=== PATIENT | male | born 1970 | race Two or more races ===

== ENCOUNTER 2024-07-14 15:27 | Inpatient (IN) | payer MEDICAID, OTHER ==
[~2024-07-14] VITALS: Ht 182.9 cm; Wt 102.5 kg
[~2024-07-14 15:27] MED LIST: ERGO500086 PO; GLIP10TA9 PO; IBUP-1456 PO; LIDO1PAD55 EX; LOSA-535 PO
[2024-07-14 16:02] VITALS: PULSE 110; O2SAT 96
[2024-07-14] MEDS: SODIUM CHLORIDE 0.9% 500 ML IVB ONE (16:15)
[2024-07-14 16:53] LABS: Alanine Aminotransferase 22 U/L (7-40); Alkaline Phosphatase 130 U/L (46-116); Anion Gap 14 (5-15); Aspartate Aminotransferase 20 U/L (13-40); BUN/Creatinine Ratio 5.2 (10.0-20.0); Bilirubin, Total 0.8 mg/dL (0.2-1.0); Blood Alcohol < 3.0 mg/dL (<10); Blood Urea Nitrogen 41 mg/dL (9-23); Calcium 9.3 mg/dL (8.7-10.4); Carbon Dioxide 19 mmol/L (20-31); Chloride 103 mmol/L (98-107); Glucose 219 mg/dL (74-106); Potassium 4.7 mmol/L (3.5-5.1); Sodium 136 mmol/L (136-145); Total Protein 7.2 g/dL (5.7-8.2)
[2024-07-14] MEDS: ACETAMINOPHEN 325 MG TAB PO ONE (16:55)
[2024-07-14 17:22] LABS: Basophils # (auto) 0 10 ^3/uL (0-0.2); Basophils % (auto) 0.1 % (0.0-2.0); Eosinophils # (auto) 0.2 10 ^3/uL (0-0.8); Eosinophils % (auto) 1.7 % (0.0-7.0); Hemoglobin 12.8 g/dL (13.5-17.5); Lymphocytes # (auto) 0.6 10 ^3/uL (0.4-5.4); Lymphocytes % (auto) 5.2 % (10.0-50.0); Mean Corpuscular Hemoglobin 32.7 pg (28.0-32.0); Mean Corpuscular Hgb Conc. 33.7 g/dL (32.0-36.0); Mean Corpuscular Volume 96.9 fL (80.0-100.0); Monocytes # (auto) 0.7 10 ^3/uL (0-1.3); Monocytes % (auto) 6.2 % (0.0-12.0); Neutrophils # (auto) 10.1 10 ^3/uL (1.6-8.6); Neutrophils % (auto) 86.8 % (37.0-80.0); Nucleated Red Blood Cells % 0.1 %; Platelet Count (auto) 165 10^3/uL (140-450); Red Blood Cells 3.92 10^6/uL (4.5-5.90); Red Cell Distribution Width 14.4 % (11.8-14.3); White Blood Cell 11.7 10^3/uL (4.4-10.8)
[2024-07-14] MEDS: SODIUM CHLORIDE 0.9% 500 ML IV ONE (17:28)
[2024-07-14] MEDS: cefTRIAXone 1GM/50ML D5W 50 ML IV ONE (17:29)
[2024-07-14] MEDS: SODIUM CHLORIDE 0.9% 1,000 ML IV ONE (18:16)
[2024-07-14 21:06] VITALS: PULSE 110; RESP 22; O2SAT 97
[2024-07-14] MEDS ORDERED: hydrALAZINE HCL 20 MG/ML VL IV PRN (22:45)
[2024-07-14] MEDS ORDERED: DEXTROSE (50%) 50ML SYRG IV PRN (22:45)
[2024-07-14] MEDS ORDERED: MORPHINE SULFATE INJ 2 MG/ml SYRG IV PRN (23:30)
[2024-07-14] MEDS ORDERED: NITROGLYCERIN 0.4 MG SL TAB SL PRN (23:30)
[2024-07-15] VITALS (10 sets, daily range): BP systolic 99–150; BP diastolic 67–90; PULSE 64–122; RESP 18–20; TEMP 98–101.3; O2SAT 93–98
[2024-07-15] MEDS: ACCU-CHEK COMFORT CURVE STRIP VI SCH (06:32)
[2024-07-15] MEDS: SODIUM CHLOR 0.9% PF (SALINE LOCK) 10ML VIAL/SYR IV SCH (06:32)
[2024-07-15] MEDS: InsuLIN REG 1unit/0.01ml Soln (100units/ml) SC SCH ×2 (06:35→21:56)
[2024-07-15 06:46] LABS: Basophils # (auto) 0 10 ^3/uL (0-0.2); Basophils % (auto) 0.2 % (0.0-2.0); Eosinophils # (auto) 0.2 10 ^3/uL (0-0.8); Eosinophils % (auto) 2.2 % (0.0-7.0); Hemoglobin 12.3 g/dL (13.5-17.5); Lymphocytes # (auto) 0.7 10 ^3/uL (0.4-5.4); Lymphocytes % (auto) 6.6 % (10.0-50.0); Mean Corpuscular Hemoglobin 33.2 pg (28.0-32.0); Mean Corpuscular Hgb Conc. 34.1 g/dL (32.0-36.0); Mean Corpuscular Volume 97.3 fL (80.0-100.0); Monocytes % (auto) 8.9 % (0.0-12.0); Neutrophils # (auto) 8.9 10 ^3/uL (1.6-8.6); Neutrophils % (auto) 82.1 % (37.0-80.0); Nucleated Red Blood Cells % 0.1 %; Platelet Count (auto) 140 10^3/uL (140-450); Red Cell Distribution Width 14.7 % (11.8-14.3); White Blood Cell 10.8 10^3/uL (4.4-10.8)
[2024-07-15 07:11] LABS: Alanine Aminotransferase 27 U/L (7-40); Albumin 3.7 g/dL (3.2-4.8); Alkaline Phosphatase 137 U/L (46-116); Anion Gap 14 (5-15); Aspartate Aminotransferase 35 U/L (13-40); BUN/Creatinine Ratio 6.6 (10.0-20.0); Bilirubin, Total 0.7 mg/dL (0.2-1.0); Calcium 9.1 mg/dL (8.7-10.4); Carbon Dioxide 18 mmol/L (20-31); Chloride 105 mmol/L (98-107); Glucose 194 mg/dL (74-106); Potassium 5.5 mmol/L (3.5-5.1); Sodium 137 mmol/L (136-145); Total Protein 6.8 g/dL (5.7-8.2)
[2024-07-15 07:17] LABS: Blood Urea Nitrogen 55 mg/dL (9-23)
[2024-07-15 07:58] LABS: Urine Bacteria FEW /hpf (None Seen); Urine Blood 3+ /uL (Negative); Urine Clarity Ex.Turbid (Clear); Urine Color Light-Orange (Yellow); Urine Protein, UAD 3+ (Negative); Urine Specific Gravity 1.013 (1.001-1.035); Urine Urobilinogen Normal (Negative); Urine WBC 2759 /hpf (0 - 3)
[2024-07-15 08:07] LABS: Amphetamine Screen, Urine Neg (NEGATIVE); Barbiturate Scree,Urine Neg (NEGATIVE); Benzodiazephine Screen, Urine Neg (NEGATIVE)
[2024-07-15 08:08] LABS: Cannabinoid Screen, Urine Neg (NEGATIVE); Cocaine Screen, Urine Neg (NEGATIVE); Opiate Scree,Urine Pos (NEGATIVE); Phencyclidine Screen, Urine Neg (NEGATIVE)
[2024-07-15] MEDS: B-COMPLEX W/ C & FOLIC ACID(NEPHROVITE TAB) PO SCH (08:35)
[2024-07-15] MEDS: ASPirin 81 mg TAB PO SCH (08:35)
[2024-07-15] MEDS: SEVELAMER 800 MG TAB PO SCH (08:35)
[2024-07-15] MEDS: cefTRIAXone 1GM/50ML D5W 50 ML IV SCH (08:44)
[2024-07-15] MEDS: MEROPENEM 500MG IVPB 50 ML IV ONE (12:39)
[2024-07-15] MEDS: SODIUM ZIRCONIUM CYCL 10 GM PAK PO SCH (14:12)
[2024-07-15] MEDS: SODIUM BICARBONATE 650 MG TAB PO SCH (14:12)
[2024-07-15] MEDS: SODIUM CHLORIDE 0.9% 1,000 ML IV SCH (14:15)
[2024-07-15 15:37] LABS: Creatinine, Urine 152.2 mg/dL (30.0-125.0)
[2024-07-15 15:39] LABS: Protein, Urine 356.7 mg/dL (1-14); Urine Protein/Creatinine Ratio 2.34
[2024-07-15] MEDS ORDERED: ATOR10TA52 PO (16:04)
[2024-07-15] MEDS ORDERED: SEMA2INJ3 SC (16:07)
[2024-07-15] MEDS ORDERED: TAMS-35 PO (16:07)
[2024-07-15] MEDS ORDERED: CHOL20007 PO (16:07)
[2024-07-15] MEDS ORDERED: ALLO300T2 PO (16:07)
[2024-07-15] MEDS: ATORVASTATIN 20 MG TAB PO SCH (21:57)
[2024-07-16] VITALS (9 sets, daily range): BP systolic 120–155; BP diastolic 75–95; PULSE 92–122; RESP 18–20; TEMP 98–101; O2SAT 92–96
[2024-07-16 06:26] LABS: Basophils # (auto) 0 10 ^3/uL (0-0.2); Basophils % (auto) 0.2 % (0.0-2.0); Eosinophils # (auto) 0.2 10 ^3/uL (0-0.8); Eosinophils % (auto) 2.3 % (0.0-7.0); Hematocrit 36.5 % (41.0-53.0); Hemoglobin 12.4 g/dL (13.5-17.5); Lymphocytes # (auto) 0.6 10 ^3/uL (0.4-5.4); Lymphocytes % (auto) 6.2 % (10.0-50.0); Mean Corpuscular Hemoglobin 32.5 pg (28.0-32.0); Mean Corpuscular Hgb Conc. 33.8 g/dL (32.0-36.0); Mean Corpuscular Volume 96.1 fL (80.0-100.0); Monocytes # (auto) 1.4 10 ^3/uL (0-1.3); Monocytes % (auto) 14.3 % (0.0-12.0); Neutrophils # (auto) 7.4 10 ^3/uL (1.6-8.6); Platelet Count (auto) 143 10^3/uL (140-450); Red Cell Distribution Width 15.1 % (11.8-14.3); White Blood Cell 9.7 10^3/uL (4.4-10.8)
[2024-07-16 06:41] LABS: Anion Gap 12 (5-15); Carbon Dioxide 20 mmol/L (20-31); Chloride 110 mmol/L (98-107); Potassium 4.6 mmol/L (3.5-5.1); Sodium 142 mmol/L (136-145)
[2024-07-16 06:42] LABS: Calcium 9.3 mg/dL (8.7-10.4)
[2024-07-16 06:47] LABS: Blood Urea Nitrogen 61 mg/dL (9-23); Glucose 230 mg/dL (74-106); Triglycerides 147 mg/dL (< 150)
[2024-07-16 06:48] LABS: LDL Cholesterol 33 mg/dL (< 100)
[2024-07-16 06:49] LABS: Cholesterol 82 mg/dL (< 200); HDL Cholesterol 6 mg/dL (40-59)
[2024-07-16] MEDS: INSULIN LANTUS (GLARGINE) 1 /0.01ml (100units/ml) SC SCH (06:56)
[2024-07-16] MEDS: SODIUM CHLORIDE 0.9% 1,000 ML IV SCH (09:15)
[2024-07-16] MEDS: MEROPENEM 500MG IVPB 50 ML IV SCH (10:57)
[2024-07-16] MEDS: NIFEdipine ER 30 MG TAB PO SCH (10:59)
[2024-07-16] MEDS: SOD CHL 0.45% 1,000 ML IV SCH (15:30)
[2024-07-16] MEDS: DOCUSATE SOD 100 MG CAP PO PRN (17:16)
[2024-07-16] MEDS: ACETAMINOPHEN 325 MG TAB PO PRN (19:01)
[2024-07-16] MEDS: HYDROcodone-ACET 5/325MG TAB PO PRN (20:53)
[2024-07-16] MEDS: LACTULOSE 20Gm/30ML SOLN PO SCH (21:08)
[2024-07-16] MEDS: HEPARIN SODIUM (PORCINE) 5000 UNITS/ML 1ML VIAL SC SCH (21:10)
[2024-07-17] VITALS (10 sets, daily range): BP systolic 106–130; BP diastolic 64–78; PULSE 74–124; RESP 17–20; TEMP 97.7–100.4; O2SAT 93–98
[2024-07-17 07:05] LABS: Chloride 109 mmol/L (98-107); Sodium 140 mmol/L (136-145)
[2024-07-17 07:06] LABS: Anion Gap 11 (5-15); Calcium 9.4 mg/dL (8.7-10.4); Carbon Dioxide 20 mmol/L (20-31)
[2024-07-17 07:10] LABS: Basophils # (auto) 0 10 ^3/uL (0-0.2); Basophils % (auto) 0.4 % (0.0-2.0); Eosinophils # (auto) 0 10 ^3/uL (0-0.8); Eosinophils % (auto) 0.4 % (0.0-7.0); Hematocrit 34.4 % (41.0-53.0); Hemoglobin 11.9 g/dL (13.5-17.5); Lymphocytes # (auto) 0.7 10 ^3/uL (0.4-5.4); Lymphocytes % (auto) 5.8 % (10.0-50.0); Mean Corpuscular Hgb Conc. 34.6 g/dL (32.0-36.0); Mean Corpuscular Volume 95.4 fL (80.0-100.0); Monocytes # (auto) 1.5 10 ^3/uL (0-1.3); Monocytes % (auto) 11.4 % (0.0-12.0); Neutrophils # (auto) 10.5 10 ^3/uL (1.6-8.6); Platelet Count (auto) 147 10^3/uL (140-450); Red Blood Cells 3.61 10^6/uL (4.5-5.90); Red Cell Distribution Width 14.9 % (11.8-14.3); White Blood Cell 12.8 10^3/uL (4.4-10.8)
[2024-07-17 07:11] LABS: BUN/Creatinine Ratio 13.5 (10.0-20.0); Blood Urea Nitrogen 65 mg/dL (9-23); Glucose 201 mg/dL (74-106)
[2024-07-17] MEDS: INSULIN LANTUS (GLARGINE) 1 /0.01ml (100units/ml) SC SCH (10:06)
[2024-07-17] MEDS: CEFEPIME 1GM/ 50ML 50 ML IV SCH (11:21)
[2024-07-18] VITALS (7 sets, daily range): BP systolic 122–143; BP diastolic 69–82; PULSE 93–110; RESP 16–21; TEMP 97.6–99.8; O2SAT 91–98
[2024-07-18] MEDS: ONDANSETRON HCL 4 MG/2 ML VIAL IV PRN (04:19)
[2024-07-18 05:56] LABS: Basophils # (auto) 0.1 10 ^3/uL (0-0.2); Basophils % (auto) 0.4 % (0.0-2.0); Eosinophils # (auto) 0.1 10 ^3/uL (0-0.8); Eosinophils % (auto) 0.4 % (0.0-7.0); Hemoglobin 12.6 g/dL (13.5-17.5); Lymphocytes # (auto) 0.8 10 ^3/uL (0.4-5.4); Mean Corpuscular Hemoglobin 32.6 pg (28.0-32.0); Mean Corpuscular Hgb Conc. 34.2 g/dL (32.0-36.0); Mean Corpuscular Volume 95.3 fL (80.0-100.0); Monocytes # (auto) 1.2 10 ^3/uL (0-1.3); Monocytes % (auto) 9.9 % (0.0-12.0); Neutrophils # (auto) 10.5 10 ^3/uL (1.6-8.6); Neutrophils % (auto) 83.3 % (37.0-80.0); Platelet Count (auto) 181 10^3/uL (140-450); Red Blood Cells 3.88 10^6/uL (4.5-5.90); Red Cell Distribution Width 14.9 % (11.8-14.3); White Blood Cell 12.6 10^3/uL (4.4-10.8)
[2024-07-18 06:11] LABS: Anion Gap 8 (5-15); Carbon Dioxide 21 mmol/L (20-31); Chloride 108 mmol/L (98-107); Potassium 3.4 mmol/L (3.5-5.1); Sodium 137 mmol/L (136-145)
[2024-07-18 06:13] LABS: Calcium 8.9 mg/dL (8.7-10.4)
[2024-07-18 06:17] LABS: BUN/Creatinine Ratio 16.9 (10.0-20.0); Blood Urea Nitrogen 60 mg/dL (9-23); Glucose 173 mg/dL (74-106)
[2024-07-18] MEDS: POTASSIUM CHL 20 Meq TABLET PO ONE (10:29)
[2024-07-18] MEDS: SOD CHL 0.45% 1,000 ML IV SCH (13:33)
[2024-07-19 01:02] VITALS: BP 134/79; PULSE 92; RESP 18; TEMP 98.2; O2SAT 92
[2024-07-19 05:00] VITALS: BP 136/75; PULSE 87; RESP 21; TEMP 98.3; O2SAT 94
[2024-07-19 06:26] LABS: Basophils # (auto) 0 10 ^3/uL (0-0.2); Basophils % (auto) 0.3 % (0.0-2.0); Eosinophils # (auto) 0.1 10 ^3/uL (0-0.8); Eosinophils % (auto) 0.6 % (0.0-7.0); Hematocrit 37.1 % (41.0-53.0); Lymphocytes # (auto) 0.8 10 ^3/uL (0.4-5.4); Lymphocytes % (auto) 6.3 % (10.0-50.0); Mean Corpuscular Volume 94.5 fL (80.0-100.0); Monocytes % (auto) 8.1 % (0.0-12.0); Neutrophils # (auto) 10.8 10 ^3/uL (1.6-8.6); Neutrophils % (auto) 84.7 % (37.0-80.0); Platelet Count (auto) 217 10^3/uL (140-450); Red Blood Cells 3.92 10^6/uL (4.5-5.90); Red Cell Distribution Width 14.5 % (11.8-14.3); White Blood Cell 12.7 10^3/uL (4.4-10.8)
[2024-07-19 06:29] LABS: Anion Gap 8 (5-15); Carbon Dioxide 21 mmol/L (20-31); Chloride 110 mmol/L (98-107); Potassium 3.8 mmol/L (3.5-5.1); Sodium 139 mmol/L (136-145)
[2024-07-19 06:30] LABS: Calcium 8.6 mg/dL (8.7-10.4)
[2024-07-19 06:35] LABS: BUN/Creatinine Ratio 19.9 (10.0-20.0); Blood Urea Nitrogen 52 mg/dL (9-23); Glucose 190 mg/dL (74-106)
[2024-07-19] MEDS ORDERED: LEVO750T40 PO (07:33)
[2024-07-19 07:34] VITALS: PULSE 84; RESP 20; O2SAT 93
[2024-07-19 08:28] VITALS: BP 122/64; PULSE 84; RESP 20; TEMP 98.4; O2SAT 93
[2024-07-19 12:43] VITALS: BP 122/64; PULSE 84; RESP 20; TEMP 98.4; O2SAT 93
[2024-07-19 13:51] VITALS: BP 139/78
== END 2024-07-19 14:20 | disposition home or self-care (01) | DRG 720 ==
LOC: EDBD 15:27 → ER 15:27 → TELE 23:16 → TELE-EAST 07-15 01:33 → EAST 07-18 07:38
PROVIDERS: ADMIT Internal Medicine; ATTEND Internal Medicine
DX: A41.50 Gram-negative sepsis, unspecified (principal); G93.41 Metabolic encephalopathy; I21.A1 Myocardial infarction type 2; E87.20 Acidosis, unspecified; J81.1 Chronic pulmonary edema; N30.00 Acute cystitis without hematuria; N13.8 Other obstructive and reflux uropathy; E11.22 Type 2 diabetes mellitus with diabetic chronic kidney disease; B96.20 Unspecified Escherichia coli [E. coli] as the cause of diseases classified elsewhere; N17.9 Acute kidney failure, unspecified; E11.65 Type 2 diabetes mellitus with hyperglycemia; E78.5 Hyperlipidemia, unspecified; E87.5 Hyperkalemia; N18.30 Chronic kidney disease, stage 3 unspecified; N40.1 Benign prostatic hyperplasia with lower urinary tract symptoms; I16.1 Hypertensive emergency; K59.00 Constipation, unspecified; M10.9 Gout, unspecified; I12.9 Hypertensive chronic kidney disease with stage 1 through stage 4 chronic kidney disease, or unspecified chronic kidney disease; Z82.49 Family history of ischemic heart disease and other diseases of the circulatory system; Z81.8 Family history of other mental and behavioral disorders; Z80.42 Family history of malignant neoplasm of prostate; Z83.3 Family history of diabetes mellitus
CPT/HCPCS: 36415; 70450; 71045; 76775; 80048; 80053; 80061; 80307; 80320; 81001; 82043; 82140; 82306; 82570; 82607; 82962; 83036; 83605; 83735; 84156; 84443; 84484; 85025; 87040; 87077; 87086; 87088; 87186; 93005; 93306; 95819; 96365; 96375; 97110; 97116; 97163; 97530; 99291; G0378; J1815; J2185; J2405